=== PATIENT | male | born 1990 | race Caucasian/White ===

== ENCOUNTER 2018-09-04 16:08 | Outpatient (CLI) | payer BC, SELFPAY ==
[2018-09-06 12:21] LABS: Hemoglobin S Screen Neg (NEG)
== END 2018-09-04 16:28 ==
PROVIDERS: PCP Naturopath; Visit Provider Naturopath
DX: Z00.00 Encounter for general adult medical examination without abnormal findings (principal); Z13.0 Encounter for screening for diseases of the blood and blood-forming organs and certain disorders involving the immune mechanism
CPT/HCPCS: 36415; 85660

== ENCOUNTER 2018-12-26 15:17 | Emergency (ER) | payer MEDICAID, SELFPAY ==
[2018-12-26 15:27] VITALS: BP 148/71; PULSE 72; RESP 18; TEMP 36.5; O2SAT 95
--- NOTE | 2018-12-26 15:46 | ED.GENADUL_ITS ---
Discharge Plan Disposition Patient Disposition: HOME Condition: Stable Discharge Details Chief Complaint: Orthopedic Clinical Impression: Fracture of hamate bone of left wrist Primary Care Provider: Dani Milan ED Provider: Rosa Mojica Discharge Instructions Instructions: Wrist Fracture in Adults (ED) Additional Instructions: Rest, ice, elevate left wrist as much as possible. Alternate tylenol and motrin as needed and directed for pain. Call orthopedics tomorrow morning to schedule a follow up appointment for re- evaluation. Return immediately to the emergency department with any worsening or new concerning symptoms. Stand Alone Forms: School Release Referrals: Isac Castillo MD [ [facility] STAFF PHYSICIAN] - Discharge Data Discharge Date/Time-TO BE ENTERED AT DEPARTURE: 12/26/18 19:24 Discharge Physician: Rosa Mojica Medical Decision Making 28-year-old male who presents with left wrist pain after punched a wall 6 days ago. Patient denies any significant pain in wrist, states only with certain movements. Patient states he was sent here by his assistive technology trainer for an x-ray to rule out fracture. Mild tenderness palpation of the dorsal mid wrist. No left snuffbox tenderness. Neurovascularly intact. No tenderness to palpation or deformity noted to hand. Will send for left wrist x-ray. Left wrist x-ray notes an intra-articular fracture of the hamate at the fifth carpometacarpal joint. A short arm volar splint was placed. Patient placed on orthopedic follow-up list. Patient given a sling. He is instructed on rest, ice, elevate. Instructed to alternate Tylenol and Motrin as needed for pain. Instructed no sports or gym until cleared by orthopedics. Medical Records Medical records reviewed: Yes I reviewed the patient's medical records. Imaging Data Radiologic Study: Radiologist's impression: XR Left Wrist Complete, 3 or more Views EXAM DATE/TIME: 12/26/2018 3:53 PM FINDINGS: Bones/joints: Intra-articular fracture of the hamate at the fifth carpal metacarpal joint. Soft tissues: Normal. IMPRESSION: Intra-articular fracture of the hamate at the fifth carpal metacarpal joint. HPI General Mode of arrival: ambulatory . Date/Time Provider Initiated Documentation: 12/26/18 15:43 . Limitations to Documentation: no limitations . Information obtained by: patient . HPI Narrative: Patient is a 28-year-old male who presents with left wrist pain after he punched a wall 6 days ago. Patient is complaining of pain in his dorsal mid wrist. He states the pain only occurs with certain movements and denies any pain at rest. Patient denies any left hand pain. Patient states he was sent here by his athletic trainers for an x- ray to rule out fracture. Related Data Allergies Allergy/AdvReac Type Severity Reaction Status Date / Time No Known Allergies Allergy Unverified 12/26/18 15:30 General Stated Complaint: Orthopedic FADIA: 4 Review of Systems Review of Systems All systems reviewed & are unremarkable except as noted in HPI and below PFSH Medical History No significant past medical history (Acute) Surgical History H/O wisdom tooth extraction (Acute) History of tonsillectomy (Chronic) Social History Smoking and Tabacco status: Never alcohol intake: current alcohol intake frequency: a few times a month substance use type: does not use Exam Const General: cooperative, healthy appearing and no acute distress HENMT Head: normal to inspection Mouth: oral mucosae normal Eyes General: appearance normal, both eyes and all related structures Neck Neck: normal visual inspection Resp Effort & Inspection: normal respiratory effort and able to speak in complete sentences Cardio Rate: regular rate Skin General skin exam: no rashes or lesions noted Neuro General: alert, awake and oriented x3 Motor: muscle tone normal throughout Extrem Left upper extremity: wrist Details: normal to inspection, tenderness Location: of the dorsal wrist (Mid breast); not of the anatomic snuffbox and normal ROM; no swelling and hand Details: normal to inspection, normal capillary refill and vascular exam Details: radial pulse present and ulnar pulse present; no tenderness, no unusual warmth and no swelling Psych Appearance: grossly normal Affect: normal affect Course Vital Signs Temperature 97.7 F 12/26/18 15:27 Pulse 72 12/26/18 15:27 Respiratory Rate 18 12/26/18 15:27 Blood Pressure 148/71 H 12/26/18 15:27 Pulse Oximetry 95 12/26/18 15:27 Temperature 97.7 F 02/06/19 15:27 Temperature Source Temporal Artery Scan 12/26/18 15:27 Pulse 72 12/26/18 15:27 Respiratory Rate 18 12/26/18 15:27 Respiratory Effort Non-Labored 12/26/18 15:29 Blood Pressure 148/71 H 12/26/18 15:27 Blood Pressure Position Sitting 12/26/18 15:27 Pulse Oximetry 95 12/26/18 15:27 Oxygen Delivery Method Room Air 12/26/18 15:27 Oxygen Flow Rate 0 12/26/18 15:27 Pain Level 0 12/26/18 15:27 Procedures Orthopedic Splinting/Casting Injury #1: Side: left Upper Extremity Injury Location: wrist Upper Extremity Immobilizer: volar spint
--- NOTE | 2018-12-26 15:52 | DI.RAD_ITS ---
SYMPTOM/DIAGNOSIS: PUNCHED A WALL, ? FX LEFT WRIST: Three views were obtained. The alignment of the carpus appears within normal limits. There is a fracture of the distal ulnar aspect of the hamate which appears to be intra-articular. No other fracture is seen although fracture of the base of the fifth metacarpal could not be entirely excluded. CONCLUSION: Hamate fracture as described. Fifth metacarpal base fracture not absolutely excluded.
--- NOTE | 2018-12-26 17:49 | DI.VRAD_ITS ---
EXAM: XR Left Wrist Complete, 3 or more Views EXAM DATE/TIME: 12/26/2018 3:53 PM CLINICAL HISTORY: 28 years old, male; Injury or trauma; Injury history: Punched a wall; Initial encounter; Blunt trauma (contusions or hematomas; Wrist; Left TECHNIQUE: XR Left wrist 3 or more views. COMPARISON: No relevant prior studies available. FINDINGS: Bones/joints: Intra-articular fracture of the hamate at the fifth carpal metacarpal joint. Soft tissues: Normal. IMPRESSION: Intra-articular fracture of the hamate at the fifth carpal metacarpal joint. Dictated and Authenticated by: Aleksandr Mei MD. Ordering:MAYTE Lee MD
== END 2018-12-26 19:24 | disposition home or self-care (01) ==
LOC: ER 20:56
PROVIDERS: Emergency Provider Physician Assistant; PCP Naturopath
DX: S62.143A Displaced fracture of body of hamate [unciform] bone, unspecified wrist, initial encounter for closed fracture (principal); W22.01XA Walked into wall, initial encounter
CPT/HCPCS: 25630; 73110; L3650

== ENCOUNTER 2021-02-17 03:27 | Outpatient (CLI) | payer MEDICAID, SELFPAY ==
[2021-02-17 09:59] LABS: HCT 44.4 % (40.0-50.0); HGB 15.2 g/dL (13.5-17.5); MCH 30.6 pg (27.0-33.0); MCHC 34.2 % (32.0-36.0); MCV 89.5 fL (80-95); Platelet Count 193 10^3/uL (130-400); RBC 4.96 10^6/uL (4.36-5.78); RDW 11.9 % (11.8-14.1); RDW-SD 38.1 fL; WBC 5.71 10^3/uL (4.4-10.8)
[2021-02-17 10:52] LABS: ALT 105 U/L (16-63); AST 46 U/L (15-37); Albumin 3.9 g/dL (3.4-5.0); Alkaline Phosphatase 100 U/L (46-116); Anion Gap 6.3 mmol/L (3-11); BUN 19 mg/dL (7-18); Bilirubin, Total 0.4 mg/dL (0.2-1.0); CO2 26.7 mmol/L (21.0-32.0); Chloride 107 mmol/L (98-107); Glucose 115 mg/dL (74-106); Potassium 4.9 mmol/L (3.5-5.1); Sodium 140 mmol/L (136-145); Total Protein 6.8 g/dL (6.4-8.2)
== END 2021-02-17 03:28 | disposition home or self-care (01) ==
LOC: LBO 03:27
PROVIDERS: PCP Naturopath; Visit Provider Physician Assistant
DX: R10.9 Unspecified abdominal pain (principal)
CPT/HCPCS: 36415; 80053; 85027; 83735

== ENCOUNTER 2021-03-17 02:58 | Outpatient (CLI) | payer MEDICAID, SELFPAY ==
--- NOTE | 2021-03-17 | DI.US_ITS ---
EXAM: US ABDOMEN CLINICAL HISTORY: ELEVATED AST AND ALT TECHNIQUE: Ultrasound of complete upper abdomen performed using standard protocol. COMPARISON: No exams were available for comparison FINDINGS: There is no ascites evident. LIVER: Liver is hyperechoic indicating steatosis. In the right hepatic lobe there is 2.1 by 2.0 x 1. 6 cm lesion which is not a simple cyst and is slightly hypoechoic relative to the surrounding liver p arenchyma. GALLBLADDER/BILIARY: There is a 4 millimeter gallbladder polyp noted. The common hepatic duct isnot dilated, measuring 3-4mm at the level of clara hepatis. PANCREAS: There is no evidence of pancreatic mass nor dilatation of the pancreatic duct. SPLEEN: The spleen is not enlarged and there are no intrasplenic lesions evident. KIDNEYS:Kidneys exhibit normal size with no evidence of solid mass, calculus, nor hydronephrosis. No cortical cysts evident. ABDOMINAL AORTA: There is no evidence of abdominal aortic aneurysm. IVC: Normal diameter where visualized. IMPRESSION: 1. There is a 21 x 20 x 16 millimeter lesion in the right hepatic lobe which is not have the appeara nce of a simple cysts nor obvious typical ultrasound appearance of a hyperechoic hemangioma. Further imaging with contrast views MRI recommended. This finding is superimposed upon a liver which appear s hyperechoic indicating steatosis. Correlation with appropriate hepatic blood work is recommended. 2. There is a small 4-5 millimeter polyp in the gallbladder. No dilatation of the biliary tree. 3. There is no ascites. DATA REPOSITORY:
== END 2021-03-17 03:18 ==
PROVIDERS: PCP Naturopath; Visit Provider Physician Assistant
DX: R74.01 Elevation of levels of liver transaminase levels (principal); K76.89 Other specified diseases of liver; K82.4 Cholesterolosis of gallbladder; K76.0 Fatty (change of) liver, not elsewhere classified
CPT/HCPCS: 76700

== ENCOUNTER 2021-03-17 03:40 | Outpatient (CLI) | payer MEDICAID, SELFPAY ==
[2021-03-17 09:26] LABS: ALT 81 U/L (16-63); AST 35 U/L (15-37); Albumin 4.1 g/dL (3.4-5.0); Alkaline Phosphatase 95 U/L (46-116); Bilirubin, Direct 0.2 mg/dL (0.0-0.2); Bilirubin, Total 0.6 mg/dL (0.2-1.0); Total Protein 7.1 g/dL (6.4-8.2)
== END 2021-03-17 03:41 | disposition home or self-care (01) ==
PROVIDERS: PCP Naturopath; Visit Provider Physician Assistant
DX: R74.01 Elevation of levels of liver transaminase levels (principal)
CPT/HCPCS: 36415; 80076